=== PATIENT | female | born 2000 | race Caucasian/White ===

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

== ENCOUNTER 2021-07-20 11:54 | Emergency (ER) | payer OTHER, SELFPAY ==
[~2021-07-20] VITALS: Ht 170.2 cm; Wt 78.0 kg
[2021-07-20 11:59] VITALS: BP 124/77
--- NOTE | 2021-07-20 12:04 | NUR ---
PT AMBULATED TO ROOM 08, GIVEN SPECIMEN CUP TO PROVIDE URINE SAMPLE AND GOWN TO CHANGE INTO.
--- NOTE | 2021-07-20 12:05 | NUR ---
21 Y/O FEMALE BIB MOTHER FROM HOME, C/O DYSURIA, URINARY RETENTION, HEMATURIA FOR 1 WEEK. ALSO C/O 03/14 DULL ABD PAIN AND LOW BACK PAIN. DENIES N/V/D. DENIES ANY RECENT TRAUMA PMH: ASTHMA NKA MED: DENIES
--- NOTE | 2021-07-20 12:27 | NUR ---
URINE COLLECTED, DIPPED AND SHOWN TO ERMDonnie.
--- NOTE | 2021-07-20 12:29 | NUR ---
ASHLEY RONDON AT BEDSIDE TO EXAMINE PT
[2021-07-20] MEDS ORDERED: PYR100 PO (12:34)
[2021-07-20] MEDS ORDERED: ACET-10509 PO (12:34)
[2021-07-20] MEDS ORDERED: CEPH-588 PO (12:34)
--- NOTE | 2021-07-20 12:45 | NUR ---
Patient discharged with v/s stable. Written and verbal after care instructions ABOUT URINARY TRACT INFECTION given and explained. Patient alert, oriented and verbalized understanding of instructions. Ambulatory with steady gait. All questions addressed prior to discharge. ID band removed. Patient advised to follow up with PMD. Rx of TYLENOL EXTRA STRENGTH, KEFLEX, AND PYRIDIUM given. Patient educated on indication of medication including possible reaction and side effects. Opportunity to ask questions provided and answered.
--- NOTE | 2021-07-22 16:49 | NUR ---
TEST RESULT BACK FROM [facility], COPY SENT TO INFECTION CONTROL BY LAB FOR INFECTION CONTROL TO CALL PT WITH RESULTS.
== END 2021-07-20 12:45 | disposition home or self-care (01) ==
LOC: MED 11:54
DX: N39.0 Urinary tract infection, site not specified (principal); J45.909 Unspecified asthma, uncomplicated; Z79.899 Other long term (current) drug therapy
CPT/HCPCS: 36415; 81002; 81025; 87491; 99283

== ENCOUNTER 2022-03-09 03:31 | Emergency (ER) | payer OTHER ==
[~2022-03-09] VITALS: Ht 170.2 cm; Wt 72.6 kg
[~2022-03-09 03:31] MED LIST: ACET-10509 PO; CEPH-588 PO; PYR100 PO
[2022-03-09 03:38] VITALS: BP 119/68
--- NOTE | 2022-03-09 03:44 | NUR ---
TO BED 12 FOLLOWING TRIAGE
--- NOTE | 2022-03-09 03:58 | NUR ---
abraham payne collected. sent to lab
--- NOTE | 2022-03-09 04:02 | NUR ---
called RT for breathing tx
--- NOTE | 2022-03-09 04:03 | NUR ---
XR at bedside.
[2022-03-09] MEDS: ALBUTEROL SULFATE/IPRATROPIU 3 ML SOL IH ONE (04:15)
--- NOTE | 2022-03-09 04:15 | NUR ---
0410 MDI INHALER GIVEN WITH ALBUTEROL VIA AEROCHAMBER. 4 PUFFS GIVEN. PT BS ARE CLEAR BILAT
[2022-03-09] MEDS ORDERED: ALBU0.0912 IH (04:22)
[2022-03-09 04:48] VITALS: BP 119/68
--- NOTE | 2022-03-09 04:48 | NUR ---
Patient discharged. Written and verbal after care instructions given and explained about COVID 19. Patient alert, oriented and verbalized understanding of instructions. Ambulatory with steady gait. All questions addressed prior to discharge. ID band removed. Patient advised to follow up with PMD. Rx of albuterol sulfate given. Patient educated on indication of medication including possible reaction and side effects. Opportunity to ask questions provided and answered.
== END 2022-03-09 04:48 | disposition home or self-care (01) ==
LOC: MED 03:31
DX: U07.1 COVID-19 (principal); J45.909 Unspecified asthma, uncomplicated; Z79.899 Other long term (current) drug therapy; Z79.2 Long term (current) use of antibiotics
CPT/HCPCS: 71045; 94664; 99284

== ENCOUNTER 2023-08-04 17:37 | Emergency (ER) | payer OTHER ==
[~2023-08-04] VITALS: Ht 172.7 cm; Wt 75.5 kg
[~2023-08-04 17:37] MED LIST changes: +ALBU0.0912 IH
[2023-08-04 17:54] VITALS: BP 118/72; PULSE 112; RESP 20; TEMP 102; O2SAT 99
[2023-08-04] MEDS ORDERED: ACETAMINOPHEN EXTRA STRENGTH 500 MG TAB PO ONE (19:05)
[2023-08-04] MEDS ORDERED: ACETAMINOPHEN EXTRA STRENGTH 500 MG TAB ONE (19:14)
[2023-08-04] MEDS ORDERED: ACET-10509 PO (19:45)
[2023-08-04] MEDS ORDERED: PROM118S5 PO (19:45)
[2023-08-04] MEDS ORDERED: FLONAS NS (19:45)
[2023-08-04 19:56] LABS: FLU A ANTIGEN negative (NEGATIVE); FLU B ANTIGEN NEGATIVE (NEGATIVE)
[2023-08-04] MEDS ORDERED: AMOX1TAB8 PO (20:01)
[2023-08-04] MEDS ORDERED: ACETAMINOPHEN 325 MG TAB PO ONE (20:10)
[2023-08-04 20:25] VITALS: BP 118/72; PULSE 112; RESP 20; TEMP 99; O2SAT 99
== END 2023-08-04 20:25 | disposition home or self-care (01) ==
LOC: MED 17:37
DX: J06.9 Acute upper respiratory infection, unspecified (principal); Z20.822 Contact with and (suspected) exposure to COVID-19; J45.909 Unspecified asthma, uncomplicated; Z79.899 Other long term (current) drug therapy
CPT/HCPCS: 71045; 87081; 99284